=== PATIENT | female | born 2005 | race Caucasian/White ===

== ENCOUNTER 2024-07-03 17:26 | Emergency (ER) | payer OTHER ==
[2024-07-03 17:43] VITALS: BP 131/78
[2024-07-03] MEDS: Diphtheria,Pertussis(Acell),Tetanus Vaccine 0.5 ML Syringe IM ONE (18:22)
[2024-07-03 18:26] VITALS: PULSE 79
== END 2024-07-03 18:26 | disposition home or self-care (01) ==
LOC: MW.ED 17:26
DX: S01.01XA Laceration without foreign body of scalp, initial encounter (principal); Z23 Encounter for immunization; F17.210 Nicotine dependence, cigarettes, uncomplicated; W22.8XXA Striking against or struck by other objects, initial encounter; Y93.89 Activity, other specified
CPT/HCPCS: 12001; 12011; 90471; 90715; 99283; 99283-25

== ENCOUNTER 2024-07-10 12:08 | Emergency (ER) | payer OTHER ==
[2024-07-10 12:50] VITALS: BP 130/56; PULSE 94
== END 2024-07-10 12:18 | disposition left against medical advice (07) ==
LOC: MW.ED 12:08
DX: S01.01XD Laceration without foreign body of scalp, subsequent encounter (principal); X58.XXXD Exposure to other specified factors, subsequent encounter
CPT/HCPCS: 99281